=== PATIENT | male | born 1960 | race Caucasian/White ===

== ENCOUNTER 2016-08-07 08:31 | Inpatient (IN) ==
--- NOTE | 2016-08-06 21:59 | Discharge Summary ---
<Mansi Borjas L - Last Filed: 08/08/16 15:49> - Discharge Diagnosis (1) Arthritis of knee, right Priority: Primary Status: Acute (2) HTN (hypertension) Priority: Secondary Status: Chronic Qualifiers: Hypertension type: essential hypertension Qualified Code(s): I10 - Essential (primary) hypertension (3) Tobacco use Priority: Secondary Status: Chronic (4) Obesity Priority: Secondary Status: Chronic Qualifiers: Obesity type: unspecified obesity type Obesity severity: unspecified obesity severity Qualified Code(s): E66.9 - Obesity, unspecified - Discharge Medications Prescriptions: HYDROcodone/Acet 5/325 mg [Boston 5-325 mg] 1 - 2 tab PO Q6H PRN #40 tablet PRN Reason: Pain Home Medications: Aspirin Enteric Coated [Aspirin EC] 325 mg PO DAILY #21 tablet. 08/06/16 [Rx] Acetaminophen [Tylenol] 1,000 mg PO Q6HR PRN 08/07/16 [History] Allopurinol [Zyloprim 300 MG] 300 mg PO DAILY 08/07/16 [History] Alprostadil 500 mcg IJ Q72H PRN 08/07/16 [History] Amlodipine Besylate/Benazepril [Lotrel 10-40 mg Capsule] 1 cap PO DAILY [History] Colchicine [Colcrys] 0.6 mg PO DAILY PRN 08/07/16 [History] Hydrochlorothiazide 25 mg PO DAILY 08/07/16 [History] Ibuprofen [Motrin] 200 mg PO Q6HR PRN 08/07/16 [History] PredniSONE [Deltasone] 20 mg PO DAILY PRN 08/07/16 [History] CloNIDine HCl 0.1 mg PO TID PRN #0 08/08/16 [Rx] HYDROcodone/Acet 5/325 mg [Boston 5-325 mg] 1 - 2 tab PO Q6H PRN #40 tablet 08/08 [Rx] Allergies/Adverse Reactions: Allergies codeine Adverse Reaction (Verified 08/07/16 08:59) See Comments "skin crawls" Primary care physician: Edel Nickerson CNP - Patient Status Disposition: Transfer Inpatient Rehab Fac Condition: Good - Discharge Instructions Follow Up With: Dov Dupree MD [Partnered Physician] - 09/05/16 10:00 am Mansi Borjas PAC [[facility]] - 08/17/16 2:15 pm Edel Nickerson CNP [Primary Care Provider] - 01/18/17 11:00 am Additional Instructions: Discharge Instructions: Total Knee Replacement Please call [facility] ([phone]), your Primary Care Physician, or report to the Emergency Room if you have any of the following symptoms: Nausea, vomiting, fever greater that 101.5, swelling, chest pain, shortness of breath, increased pain/redness/drainage/odor for your incision site, numbness/ tingling, or any other concerning symptoms. ACTIVITY:Weight-bearing as tolerated. You may progress off support (crutches or walker) as tolerated. MEDICATIONS: Upon discharge resume your home medications. Take all the medications as prescribed. Take a stool softener if taking narcotic pain medications. Stool softeners are only effective if you drink enough fluids. Drink 6-8 glass of water or fluids a day, unless this is not allowed for another health problem. Despite using stool softeners, if you haven't had a bowel movement in 3 days, please switch to a gentle laxative. Gentle laxatives are sold over the counter. You should have a bowel movement within 24 hours, if not call the office. You will be discharged from the hospital with a prescription for pain medication. You are encouraged to decrease the use of narcotic pain medication as tolerated. Should you require a refill, please call the office. [facility] prescribes narcotic pain medication for only 4-6 weeks after surgery. If you require pain medication beyond this time periord, you may be referred to your Primary Care Physician or to the Pain Clinic for further evaluation. Plan ahead for refills on pain medication as many narcotics either need to be picked up at the office or mailed. It is best to call 48-72 hours in advance of needing a prescription refill so you don't run out of medication. To help control the post-operative pain, you may take NSAIDs (Aleve,Advil, Motrin, ibuprofen, naprosyn) or Tylenol as prescribed on the bottle in addition to the pain medication. ANTICOAGULATION (blood thinners): Continue your Aspirin, Lovenox or Coumadin as prescribed to help prevent a blood clot in the leg or in the lungs. As long as your incision remains dry and you tolerate the NSAIDs (Aleve, Advil, Motrin, ibuprofen, naprosyn), it is OK to use the NSAIDS while you are taking your anticoagulation medication. Should your incision start to drain, stop the NSAID and contact our office. Common symptoms of blood clot in the legs include: localized pain, swelling, calf tenderness, redness or discoloration of the skin. Blood clot in the lung symptoms include: shortness of breath, rapid pulse, sweating, and chest pain that worsens with deep breathing, coughing up blood, lightheadedness, feelings of anxiety. If you experience any of these symptoms notify your physician immediately, go to the emergency room, or if having trouble breathing, call 911. WOUND CARE: Leave the dressing on for 7-10 days. You may change the dressing if it becomes saturated greater than 50%. You can shower but not a tub bath or submerge your incision in water. Wash your hands with antibacterial soap, rinse and dry prior to any wound care. If you have faustina the visiting nurse or rehab facility can remove the stapes 10-14 days after surgery and place steri- strips across the wound. Leave the steri-strips in place until they fall off on their won. You may let water from the shower run on top of the steri-stirips. If you do not have a visiting nurse or rehab facility, you will need to return to the office at 10-14 days for the faustina to be removed. FOLLOW-UP: Please follow up with your surgeon in the orthopedic clinic in 4 weeks from the day of surgery. If you have faustina that need to be removed, you will need to come back to the office in 10-14 days from the day of surgery. - Hospital Course Hospital course: Mr. Fernández is a 55 year old male - Time Spent with Patient Total time spent providing and/or coordinating discharge services: <Dov Dupree - Last Filed: 08/10/16 08:54> Date of Encounter: 08/08/16 Time of Encounter: 06:30 - Discharge Diagnosis (1) Arthritis of knee, right Priority: Primary Status: Acute (2) HTN (hypertension) Priority: Secondary Status: Chronic Qualifiers: Hypertension type: essential hypertension Qualified Code(s): I10 - Essential (primary) hypertension (3) Tobacco use Priority: Secondary Status: Chronic (4) Obesity Priority: Secondary Status: Chronic Qualifiers: Obesity type: unspecified obesity type Obesity severity: unspecified obesity severity Qualified Code(s): E66.9 - Obesity, unspecified Primary care physician: Edel Nickerson CNP - Patient Status Functional capacity at discharge: uses cane/walker Overall status at discharge: patient is progressing back to baseline - Hospital Course Hospital course: Mr. Fernández is a 55 year old male - Time Spent with Patient Total time spent providing and/or coordinating discharge services:
--- NOTE | 2016-08-07 08:45 | History & Physical Report ---
Date of Encounter: 08/07/16 Time of Encounter: 08:44 24 Hour HP Update - Instructions Instructions: If the History and Physical is less than 30 days old and was completed prior to A.M. admission and or procedure and has NOT been updated on calendar day of procedure please complete this update prior to performing procedure. - Update Patient reports changes in Medical Condition: No Changes in assessment/condition: No Changes in Medication: No Preop tests/diagnostics Reviewed: Yes Surgery Remains Indicated: Yes Consent for Planned Operative Procedure(s) Verified: Yes - Pre-Operative Checklist Preoperative Checklist Indicated: No Prophylactic Antibiotic Ordered: Yes Is VTE Prophylaxis Indicated?: Yes
[2016-08-07] MEDS ORDERED: Lidocaine -MPF 1% 2 ML VIAL ID ONE (09:00)
[2016-08-07] MEDS ORDERED: CeFAZolin Pre 2,000 MG/100 ML 2,000 MG/100 ML BAG IVPB ONE (09:00)
[2016-08-07] MEDS: Ringers Solution, Lactated 1,000 ML IVC SCH ×3 (09:24→19:52)
[2016-08-07] MEDS ORDERED: Famotidine 20 MG/2 ML VIAL IVP ONE (09:32)
--- NOTE | 2016-08-07 09:45 | Anesthesia Evaluation PreOp ---
Date of Encounter: 08/07/16 Time of Encounter: 09:45 - Past History Planned Operation: Rt TKA Cardiac History: HTN, Hyperlipidemia Pulmonary History: Smoker (Chews tobacco) CHRONIC DISEASE EPIDEMIOLOGIST History: Other (Blind Rt Eye) Other Medical History: Denies Any Significant HX, Other (Obese) Anesthesia History: No Prior Anesthetic Complications Alcohol Use: occasionally Drug use: none Medications and Allergies Aspirin Enteric Coated [Aspirin EC] 325 mg PO DAILY #21 tablet. 08/06/16 [Rx] OxyCODONE Immed Rel [Roxicodone 5 MG] 5 - 10 mg PO Q6HR PRN #40 tablet 08/06/16 [Rx] Acetaminophen [Tylenol] 1,000 mg PO Q6HR PRN 08/07/16 [History] Allopurinol [Zyloprim 300 MG] 300 mg PO DAILY 08/07/16 [History] Alprostadil 500 mcg IJ Q72H PRN 08/07/16 [History] Amlodipine Besylate/Benazepril [Lotrel 10-40 mg Capsule] 1 cap PO DAILY [History] CloNIDine HCl 0.1 mg PO TID 08/07/16 [History] Colchicine [Colcrys] 0.6 mg PO DAILY PRN 08/07/16 [History] Hydrochlorothiazide 25 mg PO DAILY 08/07/16 [History] Ibuprofen [Motrin] 200 mg PO Q6HR PRN 08/07/16 [History] PredniSONE [Deltasone] 20 mg PO DAILY PRN 08/07/16 [History] Allergies codeine Adverse Reaction (Verified 08/07/16 08:59) See Comments "skin crawls" - Meds/Allergy Pre-op Review Medications Reviewed: Yes Allergies Reviewed: Yes Beta Blockers on Current Med List: No Anesthesia Results - Labs Laboratory Tests 07/28/16 07/28/16 09:01 09:01 Hgb 16.9 Hct 49.5 Plt Count 188 Sodium 141 Potassium 3.6 BUN 9 Creatinine 0.99 - Imaging EKG: report reviewed (SR First Degree Block) Anesthesia Exam O2 Sat Height 1.74 m Height 1.74 m Weight 120.656 kg Weight 120.656 kg O2 Sat by Pulse Oximetry 98 Vital Signs Temp Pulse Resp BP Pulse Ox 98.3 F 68 18 144/91 98 08/07/16 08:47 08/07/16 08:47 08/07/16 08:47 08/07/16 08:47 08/07/16 08:47 Height: 5'8 Weight: 259 lbs NPO (# of Hours): MN Pain Scale: 0 - HEENT Pupil (Motor): Pupils equal, EOMI Mallampati: III Teeth: Normal Oral Opening: Less than or equal to 3 - CHRONIC DISEASE EPIDEMIOLOGIST LOC: Oriented CHRONIC DISEASE EPIDEMIOLOGIST Motor: Normal RUE, Normal LUE, Normal RLE, Normal LLE, Normal Face CHRONIC DISEASE EPIDEMIOLOGIST Sensory: Normal: RUE, LUE, RLE, LLE, Face - Cardiac Rhythm: Regular Murmur: None JVD: No Carotid Bruit: No - Pulmonary Breath Sounds: bilateral Clear Respiratory Effort: Symmetrical Anesthesia Assess/Plan ASA Score: 2 Modified Milad Scale for Level of Consciousness: Cooperative, oriented, and tranquil Anesthetic Plan: General, Regional Monitoring Plan: Standard Monitors Recovery Plan: PACU (Discussed GA and RA, agrees to proceed)
[2016-08-07] MEDS ORDERED: *HR* FentaNYL (PF) 100 MCG/2 ML VIAL ONE (10:07)
[2016-08-07] MEDS ORDERED: *HR* Midazolam HCl 2 MG/2 ML VIAL ONE (10:07)
[2016-08-07] MEDS ORDERED: *HR* Propofol 200 MG/20 ML VIAL IVP ONE (10:07)
[2016-08-07] MEDS ORDERED: Ondansetron 4 MG/2 ML VIAL ONE (10:08)
[2016-08-07] MEDS ORDERED: Dexamethasone 4 MG/ML VIAL ONE (10:08)
[2016-08-07] MEDS ORDERED: Lidocaine -MPF 2% 2 ML VIAL ONE (10:08)
[2016-08-07] MEDS ORDERED: *HR* Succinylcholine 200 MG/10 ML VIAL IVP ONE (10:09)
[2016-08-07] MEDS ORDERED: ROPIVACAINE HCL/PF 0.5% 30 ML VIAL ONE (10:31)
[2016-08-07] MEDS ORDERED: Bupivacaine/Clonidine Syringe 1 EACH SYRINGE ONE (10:32)
--- NOTE | 2016-08-07 11:01 | Anesthesia Procedures ---
Date of Encounter: 08/07/16 Time of Encounter: 10:45 Procedures: Anesthesia - Nerve Block Procedure Date: 08/07/16 Time: 10:45 Pre-op Diagnosis: Right knee arthritis Surgical Procedure: Right total knee arthroplasty Checklist: Correct Patient Identifier, Correct procedure, History checked Correct side: Right Blood Thinner: No Monitor Applied: EKG, BP, Pulse Oximetry Supplemental Oxygen via Nasal Cannula (L/min): 2 Sedation: Versed (mg): 2 Sedation: Fentanyl (mcg): 100 Indication: Post Op Analgesia Pre-op Neuro Deficits: No Block Type: Femoral, Popliteal Catheter placed: No Sterile Technique: Yes Ultrasound used: Yes Anatomy identified: Yes Visual spread of Local: Yes Neuro Stimulation: Yes Nerve Stimulator Range: 0.2 - 0.4 mA Blood on Needle Aspiration: No Smooth Injection of Local: Yes Pain with Injection of Local: No Prep: Chlorhexadine Needle: 22 x 50 mm Stimuplex Local: 0.25% Bupivicaine w/Clonidine 20 mcg/cc (20cc), Ropivacaine Volume (cc): Ropivicaine 0.5% 30cc, Number of Attempts: 1 Complications: None/effective block Vitals: Vital Signs/O2 Sat/Glucose, Most Recent Temp Pulse Resp BP Pulse Ox 98.3 F 60 16 128/69 96 08/07/16 08:47 08/07/16 10:49 08/07/16 10:49 08/07/16 10:49 08/07/16 10:49
[2016-08-07] MEDS ORDERED: EPHEDrine 50 MG/ML VIAL ONE (11:39)
[2016-08-07] MEDS ORDERED: *HR* Promethazine 25 MG/ML VIAL IVP PRN (11:47)
--- NOTE | 2016-08-07 11:58 | Orthopedic Operative Note ---
Date of procedure: 08/07/16 Pre-op diagnosis: Right knee arthritis Post-op diagnosis: same Procedure: Procedure: Right Total knee replacement Estimated blood loss: 200 cc Hardware: Arthrex Femur: 8 Tibia: 8 PS insert: 40 Patella: 16 Exam Under anesthesia: Varus alignment loss. Loss of full extension 10 degrees Procedural Notes: Grade 4 arthritic changes medial compartment patellofemoral joint. Operative procedure: The patient was brought to the operating room and placed on the operating room table. After general anesthesia was administered the operative knee was examined. Findings were noted in the exam under anesthesia. The operative extremity was prepped and draped in sterile surgical fashion. The patient received IV antibiotics prior to skin incision. A standard midline incision was made centered over the patella. The incision was made through the skin and subcutaneous tissue. A medial parapatellar tendon approach was performed. Care was taken to preserve tissue along the medial aspect of the patella. And to protect the patella tendon. The deep MCL was released off the medial tibia. The infra patella fat pad was excised. Knee was brought into flexion. Patient noted to have grade 4 arthritic changes medial compartment patellofemoral joint. The entry hole was made for the intramedullary femoral guide. The guide was seated in 6 degrees of valgus. Anterior cut was made followed by the distal cut. The ACL the PCL the medial and the lateral menisci were excised. The tibia was subluxed forward. The entry hole was made for the intramedullary tibial guide. Guide was seated to resect 2 mm off the more abnormal side. The knee was brought into flexion the distal femur was sized to an 8. The femoral guide was seated, the anterior cut was made followed by the posterior condylar cut, followed by the chamfer cuts. The finishing guide was seated the box cut was made and the lug holes were drilled. The tibia was sized to an 8, the tibial tray was seated and prepared with the large drill followed by the fin cutter. Trial reduction revealed full extension no varus valgus instability with the appropriate 16 PS Gayla. The patella was everted and cut was made at the level of the insertion of the quadriceps and patella tendon. The patella was sized to 40 the guide was seated and the lug holes are drilled. Trial reduction revealed excellent patella tracking. All trial components were removed all bony surfaces were irrigated. The tibia was cemented first followed by the femur. The 16 PS Gayla was seated and the knee was brought into full extension. The patella was cemented and held in place with the patellar holding clamp. After the cement had hardened, the knee sat for 2 minutes with a Betadine saline solution. The knee was then irrigated out with 2 L of pulse irrigation. The extensor mechanism was closed with #2 FiberWire suture and #2 PDS suture. The subcutaneous tissue was then irrigated and closed deep with #1 PDS suture superficially with 0 PDS suture and skin was closed with skin faustina. The patient was then placed in a sterile dressing and a postoperative brace extubated and transferred to recovery room in stable condition. Anesthesia: GETA Surgeon: Dov Dupree Slitter Service And Setter: Mansi Borjas Condition: stable Disposition: PACU
[2016-08-07] MEDS: *HR* HYDROmorphone (PF) 1 MG/ML SYRINGE IVP PRN ×4 (12:30→13:00)
[2016-08-07 13:09] LABS: Hematocrit 40.4 % (37.5-50.1); Hemoglobin 13.6 g/dL (12.9-16.9)
--- NOTE | 2016-08-07 13:11 | Anesthesia Evaluation Post Op ---
Date of Encounter: 08/07/16 Time of Encounter: 13:10 - Vital Signs Vital Signs: Vital Signs/O2 Sat/Glucose, Most Current Temp Pulse Resp BP Pulse Ox 08/07/16 12:58 98.0 F 59 16 108/76 95 08/07/16 12:48 53 16 99/60 97 08/07/16 12:38 55 16 92/63 98 08/07/16 12:28 97.9 F 76 14 108/79 93 L 08/07/16 11:05 55 16 107/70 96 08/07/16 10:49 60 16 128/69 96 08/07/16 10:28 51 16 131/81 98 - Lungs Lungs: Clear Ascult./Percussion - Airway Airway: Non-obstructed - Cardiovascular Regular Rate - Mental Status Mental Status: Alert & Oriented, Answers Appropriately - Pain Pain Scale: 0 - Nausea Vomiting Nausea Vomiting: Not Present - Hydration Hydration: Ice chips - Discharge PostOp Status: Transfer Patient to floor
[2016-08-07] MEDS ORDERED: Temazepam 15 MG CAPSULE PO PRN (13:33)
[2016-08-07] MEDS ORDERED: *HR* HYDROmorphone (PF) 1 MG/ML SYRINGE IVP PRN (13:33)
[2016-08-07] MEDS ORDERED: Acetaminophen 325 MG TABLET PO PRN (13:33)
[2016-08-07] MEDS ORDERED: predniSONE 20 MG TABLET PO PRN (13:33)
[2016-08-07] MEDS ORDERED: Ondansetron 4 MG/2 ML VIAL IVP PRN (13:33)
[2016-08-07] MEDS ORDERED: Sennosides 8.6 MG TABLET PO PRN (13:33)
[2016-08-07] MEDS ORDERED: ALPROSTADIL 500 MCG IJ PRN (13:33)
[2016-08-07] MEDS ORDERED: MOM Conc 10 ML UD.LIQ PO PRN (13:33)
[2016-08-07] MEDS ORDERED: Naloxone 0.4 MG/ML INJ IVP PRN (13:33)
[2016-08-07] MEDS ORDERED: *HR* OxyCODONE Immed Rel 5 MG TABLET PO PRN ×2 (13:33)
[2016-08-07] MEDS ORDERED: Colchicine 0.6 MG TABLET PO PRN (13:33)
[2016-08-07] MEDS: Ibuprofen 200 MG TABLET PO SCH ×3 (13:45→23:22)
[2016-08-07] MEDS ORDERED: *HR* Enoxaparin 30 MG/0.3 ML SYRINGE SQ SCH (18:00)
[2016-08-07] MEDS: ceFAZolin 3,000 MG in D5% in Water 100 ML IVPB SCH ×2 (18:19→23:22)
[2016-08-07] MEDS: *HR* Enoxaparin 30 MG/0.3 ML SYRINGE SQ SCH (18:20)
[2016-08-07] MEDS: cloNIDine HCl 0.1 MG TABLET PO SCH ×2 (18:20→19:49)
[2016-08-08] MEDS: *HR* Enoxaparin 30 MG/0.3 ML SYRINGE SQ SCH ×2 (05:33→17:31)
[2016-08-08] MEDS: Ibuprofen 200 MG TABLET PO SCH ×3 (05:33→17:30)
[2016-08-08 06:14] LABS: Hematocrit 36.7 % (37.5-50.1); Hemoglobin 12.4 g/dL (12.9-16.9)
[2016-08-08 06:26] LABS: Blood Urea Nitrogen 7 mg/dL (8-26); Carbon Dioxide 28 mEq/L (19-29); Chloride 100 mEq/L (98-109); Potassium 3.5 mEq/L (3.5-4.5); Sodium 137 mEq/L (136-145)
[2016-08-08 06:27] LABS: BUN/Creatinine Ratio 8 (6-26); Calcium 8.9 mg/dL (8.6-10.8); Glucose 101 mg/dL (70-99); Osmolality,Calculated 282 (280-300); eGFR For African Americans > 60 (> 60); eGFR For Non-African Americans > 60 (> 60)
--- NOTE | 2016-08-08 06:27 | Orthopedics Progress Note ---
Date of Encounter: 08/08/16 Time of Encounter: 06:27 - Assessment and Plan (1) Arthritis of knee, right Current Visit: Yes Status: Acute (2) HTN (hypertension) Current Visit: Yes Status: Chronic Qualifiers: Hypertension type: essential hypertension Qualified Code(s): I10 - Essential (primary) hypertension (3) Tobacco use Current Visit: Yes Status: Chronic (4) Obesity Current Visit: Yes Status: Chronic Qualifiers: Obesity type: unspecified obesity type Obesity severity: unspecified obesity severity Qualified Code(s): E66.9 - Obesity, unspecified Subjective Interval history: Patient was seen this morning doing well without complaints. Afebrile vital signs stable. Operative extremity: Neurovascularly intact Dressing clean dry and intact Calves nontender Assessment and plan: Continue with postoperative care Hematocrit 37 Objective Vital signs: Vital Signs Temp Pulse Resp BP Pulse Ox 08/08/16 03:46 98.6 F 79 18 114/77 92 L 08/07/16 23:43 98.7 F 79 17 121/63 95 08/07/16 19:10 97.6 F 88 18 135/79 94 L 08/07/16 16:30 98.0 F 62 17 128/85 95 08/07/16 15:35 97.9 F 60 16 125/82 95 08/07/16 14:42 97.6 F 52 18 113/62 90 L 08/07/16 14:30 97.8 F 61 16 129/86 95 08/07/16 14:00 97.7 F 60 16 118/90 95 08/07/16 13:37 97.7 F 60 15 112/66 95 08/07/16 13:14 56 16 114/70 95 08/07/16 13:08 61 16 113/73 95 08/07/16 12:58 98.0 F 59 16 108/76 95 08/07/16 12:48 53 16 99/60 97 08/07/16 12:38 55 16 92/63 98 08/07/16 12:28 97.9 F 76 14 108/79 93 L 08/07/16 11:05 55 16 107/70 96 08/07/16 10:49 60 16 128/69 96 08/07/16 10:28 51 16 131/81 98 08/07/16 08:47 98.3 F 68 18 144/91 98 Intake and Output 08/07/16 08/07/16 08/08/16 15:59 23:59 07:59 Intake Total 1000 / 1000 100 / 100 Output Total 700 / 700 500 / 500 525 / 525 Balance 300 / 300 -400 / -400 -525 / -525 Intake: IV Fluids 1000 / 1000 100 / 100 Lactated Ringers 1,000 ML 1000 / 1000 @ 25 mls/hr IVC .Q24H [facility] Rx#:[id number] Ancef 3,000 MG In 100 / 100 Dextrose 5% 100 ML @ 200 mls/hr IVPB Q8HR [facility] Rx#: [id number] Output: Urine 500 / 500 525 / 525 Estimated Blood Loss 700 / 700 Other: Meal Dinner Percent of Meal Consumed 100% # Voids 1 Weight 120.656 kg - Labs CBC & BMP: 08/08/16 05:26 Labs: Abnormal lab results Hgb 12.4 g/dL (12.9-16.9) L 08/08/16 05:26 Hct 36.7 % (37.5-50.1) L 08/08/16 05:26 - VTE Documentation of Mechanical Device: Venous foot pump, device Consult Discharge Plan - Plan Referrals: Edel Nickerson, MEDICAL LAB TECH INSTRUCTOR [Primary Care Provider] -
[2016-08-08] MEDS ORDERED: *HR* HYDROcodone/Acet 5/325 mg TABLET PO PRN (07:12)
[2016-08-08] MEDS: cloNIDine HCl 0.1 MG TABLET PO SCH (08:39)
[2016-08-08] MEDS ORDERED: NON-FORMULARY MEDICATION 1 EACH EACH (Amlodipine Besylate/Benazepril [Lotrel 10-40 Mg Caps PO SCH (09:00)
[2016-08-08] MEDS ORDERED: amLODIPine 5 MG TABLET PO SCH (09:00)
[2016-08-08] MEDS ORDERED: Lisinopril 20 MG TABLET PO SCH (09:00)
[2016-08-08] MEDS ORDERED: hydroCHLOROthiazide 25 MG TABLET PO SCH (09:00)
[2016-08-08] MEDS: *HR* HYDROcodone/Acet 5/325 mg TABLET PO PRN ×3 (09:37→18:07)
[2016-08-08] MEDS: Ringers Solution, Lactated 1,000 ML IVC SCH (12:20)
[2016-08-08] MEDS ORDERED: cloNIDine HCl 0.1 MG TABLET PO PRN (14:05)
[2016-08-08 14:42] VITALS: BP 137/74
[2016-08-08] MEDS ORDERED: cloNIDine HCl 0.1 MG TABLET PO SCH (21:00)
== END 2016-08-08 18:13 | DRG 302 ==
LOC: SAMDAY 08:31 → 3NENU 13:35
PROVIDERS: ADMIT Orthopaedic Surgery; ATTEND Orthopaedic Surgery